=== PATIENT | male | born 1960 | race Caucasian/White ===

== ENCOUNTER 2022-05-02 07:19 | Day surgery (SDC) | payer OTHER ==
[2022-05-01 14:37] LABS: COVID AG,FIA SOURCE NASAL SWAB
[~2022-05-02] VITALS: Ht 175.3 cm; Wt 88.0 kg
[~2022-05-02 07:19] MED LIST: DOXY-354 PO; METR250 PO; OMEP20 PO; SODIUM CHLORIDE 0.9% 1,000 ML IV ONE
[2022-05-02] MEDS ORDERED: SODIUM CHLORIDE 0.9% 1,000 ML ONE (08:28)
[2022-05-02] MEDS ORDERED: PROPOFOL 1% 20 ML VIAL IVP ONE (12:00)
[2022-05-02] MEDS ORDERED: OXYGEN THERAPY IH SCH (20:00)
== END 2022-05-02 10:30 | disposition home or self-care (01) ==
LOC: SURGERY 07:19
PROVIDERS: ATTEND Specialist
DX: R19.5 Other fecal abnormalities (principal); K64.0 First degree hemorrhoids; Z87.891 Personal history of nicotine dependence; Z79.899 Other long term (current) drug therapy; Z98.890 Other specified postprocedural states; Z82.49 Family history of ischemic heart disease and other diseases of the circulatory system
CPT/HCPCS: 87426; 45378; C9803; J2704; J7030